=== PATIENT | female | born 1950 | race Caucasian/White ===

== ENCOUNTER 2016-12-29 18:16 | Emergency (ER) | payer MEDICARE, OTHER ==
[2016-12-29 19:19] LABS: BASO % 0.2 % (0-2); EOS % 1.3 % (0-7); EOSINOPHIL ABSOLUTE COUNT 0.1 tho/cmm (0.0-0.7); HCT-HEMATOCRIT 40.1 % (34.0-49.0); HGB-HEMOGLOBIN 13.3 gm/dl (12.0-15.5); IMMATURE GRANULOCYTES ABSOLUTE 0.06 tho/cmm (0-0.03); IMMATURE GRANULOCYTES PERCENT 0.7 % (0-0.3); LYMPH % 16.2 % (20-45); LYMPH ABSOLUTE COUNT 1.4 tho/cmm (0.8-4.5); MCH (MEAN CORPUSCULAR HGB) 29.5 pg (28.0-32.0); MCHC MEAN CORPUSCULAR HGB CONC 33.2 % (32.0-36.0); MCV (MEAN CELL VOLUME) 88.9 fl (82.0-96.0); MEAN PLATELET VOLUME 10.4 cmc (9.4-12.4); MONO % 9.7 % (0-12); MONOCYTE ABSOLUTE COUNT 0.9 tho/cmm (0.0-1.2); NEUTROPHIL ABSOLUTE COUNT 6.3 tho/cmm (1.6-8.0); NEUTROPHIL-AUTOMATED 6.3 tho/cmm (1.6-8.0); NEUTROPHILS % 71.9 % (40-80); PLATELET COUNT 278 tho/cmm (150-450); RED BLOOD COUNT 4.51 mil/cmm (4.00-5.20); WHITE BLOOD COUNT 8.7 tho/cmm (4.0-10.0)
[2016-12-29 19:35] LABS: BLOOD UREA NITROGEN 10 mg/dl (6-24); CALCIUM 9.2 mg/dl (8.5-10.5); CARBON DIOXIDE-VENOUS 24 mmol/L (22-32); CHLORIDE 104 mmol/l (96-110); CREATININE 0.69 mg/dl (0.50-1.10); GLUCOSE 127 mg/dL (70-110); SODIUM 139 mmol/L (135-145); eGFR VALUE FOR BLACK >90 mL/Min
[2016-12-29 19:37] LABS: ANION GAP 15 mmol/L (0-20); POTASSIUM 3.6 mmol/L (3.7-5.1)
[2016-12-29] MEDS ORDERED: VITAMIN C1000 M1 PO (20:10)
[2016-12-29] MEDS ORDERED: BRILINTA90 M1 PO (20:11)
[2016-12-29] MEDS ORDERED: ASPIRIN EC81 MG PO (20:11)
[2016-12-29] MEDS ORDERED: LIPITOR40 M1 PO (20:11)
[2016-12-29] MEDS ORDERED: METOPROLOL TART25 M1 PO (20:12)
[2016-12-29] MEDS ORDERED: MULTIVITAMINS1 EAC6 PO (20:12)
[2016-12-29] MEDS ORDERED: LASIX20 M1 PO (20:12)
[2016-12-29] MEDS ORDERED: MIRALAX119 G1 PO (20:13)
== END 2016-12-29 22:02 ==
LOC: EDMED 18:16
PROVIDERS: Emergency Medicine
DX: R06.00 Dyspnea, unspecified (principal); I25.10 Atherosclerotic heart disease of native coronary artery without angina pectoris; I25.2 Old myocardial infarction; Z95.1 Presence of aortocoronary bypass graft; Z95.5 Presence of coronary angioplasty implant and graft; Z87.891 Personal history of nicotine dependence; Z79.899 Other long term (current) drug therapy; Z79.82 Long term (current) use of aspirin
CPT/HCPCS: Q9967